=== PATIENT | female | born 2000 | race Caucasian/White ===

== ENCOUNTER 2021-03-04 09:08 | Outpatient (CLI) | payer BC, SELFPAY ==
--- NOTE | 2021-03-04 09:31 | MR_ITS ---
WS: [id number] MRI FACE AND NECK WITH AND WITHOUT CONTRAST. COMPARISON: None Multiplanar, multisequence imaging is performed with and without contrast. Sagittal and axial T1 fat sat sequences post-MultiHance 16 cc IV. Small benign cervical chain lymph nodes measure up to 7 mm in short axis diameter. No adenopathy. The re is a normal appearance of the torus tubarius and eustachian tubes. No increase fluid or abnormal s ignal with enhancement near the internal or external auditory canals or in the retropharynx. Normal appearance of the parotid glands and submandibular glands. Moderate mucoperiosteal thickening in the LEFT maxillary sinus. Visualized orbits and globes and skul l base are normal. No abnormality at the cerebellopontine angle. No inferior displacement of cerebellar tonsils. The visualized cervical cord and brainstem are negati ve. MR/MR orbit face neck wo/w* [id number] IMPRESSION: 1. No enhancing masses along the eustachian tubes or internal/state auditor y canals. 2. Benign cervical chain lymph nodes. 3. LEFT maxillary sinus mucoperiosteal thickening.
[2021-03-04] MEDS: gadobenate dimeglumine 20 mL vial IV (10:32)
== END 2021-03-04 09:09 | disposition home or self-care (01) ==
PROVIDERS: Visit Provider Otolaryngology
DX: H92.01 Otalgia, right ear (principal)
CPT/HCPCS: 70543; A9577

== ENCOUNTER → 2024-06-30 09:02 | Outpatient (BNVA) | payer BC, SELFPAY | PROVIDERS: PCP Family Medicine; Visit Provider Family Medicine | DX: R50.9 Fever, unspecified (principal); J10.1 Influenza due to other identified influenza virus with other respiratory manifestations; Z76.89 Persons encountering health services in other specified circumstances | CPT/HCPCS: 87400; 87426 ==

== ENCOUNTER → 2024-12-23 09:31 | Outpatient (BNVA) | payer BC, SELFPAY | PROVIDERS: PCP Family Medicine; Visit Provider Nurse Practitioner Family | DX: J02.9 Acute pharyngitis, unspecified (principal) | CPT/HCPCS: 87070; 87880 ==